=== PATIENT | male | born 1985 ===

== ENCOUNTER 2021-12-02 07:18 | Emergency (ER) | payer MEDICAID ==
[~2021-12-02] VITALS: Ht 162.6 cm; Wt 65.9 kg
[2021-12-02] MEDS ORDERED: BACITRACIN 0.9 GM PACKET OINTMENT TP ONE (07:45)
[2021-12-02] MEDS ORDERED: ACETAMINOPHEN 500 MG TABLET PO ONE (07:45)
[2021-12-02] MEDS ORDERED: IBUPROFEN 600 MG TABLET PO ONE (07:45)
[2021-12-02] MEDS ORDERED: PERTUSS(ACELL),DIPH,TET VAC/PF 0.5 ML SYRINGE IM. ONE (07:45)
[2021-12-02] MEDS ORDERED: AMOX TR/POT CLAV 875 MG/125 MG TABLET PO ONE (07:45)
[2021-12-02] MEDS ORDERED: LIDOCAINE 1% 10 ML VIAL SQ ONE (08:30)
[2021-12-02 08:37] VITALS: BP 126/78
[2021-12-02] MEDS ORDERED: AMOX1TAB16 PO (09:20)
== END 2021-12-02 10:07 | disposition home or self-care (01) ==
LOC: EMS 07:18
DX: S61.012A Laceration without foreign body of left thumb without damage to nail, initial encounter (principal); F10.20 Alcohol dependence, uncomplicated; W50.3XXA Accidental bite by another person, initial encounter; Y93.89 Activity, other specified; Y92.89 Other specified places as the place of occurrence of the external cause; Y99.8 Other external cause status
CPT/HCPCS: 73140; 90471; 90715; 99284; J3490